=== PATIENT | female | born 1985 | race African-American/Black ===

== ENCOUNTER → 2022-06-11 15:41 | Outpatient (CLI) | payer OTHER, SELFPAY ==
[2022-06-11 16:46] LABS: Add Manual Diff / Slide Review NO; Basophils Absolute Auto 100 /uL (0-100); Eosinophils Absolute Auto 0 /uL (0-450); Eosinophils Percent Auto 0.6 % (2-4); Hematocrit 32.6 % (36-46); Hemoglobin 10.9 g/dL (12.0-16.0); Lymphocytes Absolute Auto 2400 /uL (1100-4500); Lymphocytes Percent Auto 34.1 % (25-40); Mean Corpuscular HGB Conc 33.5 % (30-36); Mean Corpuscular Hemoglobin 27.1 PG (26-34); Mean Corpuscular Volume 80.8 fL (80-100); Monocytes Absolute Auto 600 /uL (0-900); Monocytes Percent Auto 8.4 % (3-14); Neutrophils Absolute Auto 4000 /uL (1500-7000); Neutrophils Percent Auto 55.9 % (50-75); Platelet Count 284 X10^3/uL (150-400); Red Blood Cell Count 4.04 X10^6/uL (4.0-5.2); Red Cell Distribution Width 16.2 % (11.6-14.8); White Blood Cell Count 7.1 X10^3/uL (4.5-11.0)
[2022-06-11 17:26] LABS: BUN Creatinine Ratio 22.4 (6-22); Blood Urea Nitrogen 17 mg/dL (7-17); Calcium 9.7 mg/dL (8.4-10.2); Carbon Dioxide 24 mmol/L (22-32); Chloride 100 mmol/L (98-107); Cholesterol 184 mg/dL (140-199); Estimated Glomerular Filt Rate > 60 mL/min (>60); Glucose 88 mg/dL (70-100); HDL Cholesterol 52 mg/dL (40-60); HEMOLYSIS < 15 (0-50); LDL Cholesterol Calculated 111 mg/dL (<100); Potassium 2.9 mmol/L (3.4-5.1); Sodium 140 mmol/L (137-145); Triglycerides 103 mg/dL (35-150)
[2022-06-22 12:27] LABS: Renin Activity 0.332 ng/mL/hr (0.167-5.380)
== END ==
PROVIDERS: PCP Internal Medicine Cardiovascular Disease; Referring Provider Internal Medicine Cardiovascular Disease; Visit Provider Internal Medicine Cardiovascular Disease
DX: I10 Essential (primary) hypertension (principal)
CPT/HCPCS: 36415; 80048; 80061; 82088; 84244; 85025

== ENCOUNTER → 2022-08-20 14:28 | Outpatient (CLI) | payer OTHER, SELFPAY ==
--- NOTE | 2022-08-20 14:59 | DI.ECHO.S_ITS ---
Interpretation Summary 1) Normal left ventricular thickness, size, wall motion, and systolic function (EF 60-65%). 2) Normal right ventricular size and function. 3) No significant valvular abnormalities. 4) No prior Echo available for comparison. Procedure: A two-dimensional transthoracic echocardiogram with color flow and Doppler was performed. The study quality was technically good. There is no prior echocardiogram noted for this patient. The patient was in sinus rhythm with heart rates between 68-76 bpm during the exam. Left Ventricle: The left ventricle is normal in size and wall thickness. The ejection fraction is estimated to be 60-65%. Left ventricular systolic function appears normal without focal wall motion abnormalities. Diastolic parameters suggest probable normal left ventricular diastolic function and normal filling pressures. Right Ventricle: The right ventricle is normal in size and function. Atria: The left atrial size is normal. Right atrial size is normal. There is no Doppler evidence for an interatrial shunt. Mitral Valve: The mitral valve is normal in structure and function. There is trace mitral regurgitation. Aortic Valve: The aortic valve is normal in structure and function. There is no aortic valve stenosis. No aortic regurgitation is present. Tricuspid Valve: The tricuspid valve is normal in structure and function. There is a trace or physiologic amount of tricuspid regurgitation. The right ventricular systolic pressure is estimated to be at least 20.3 mmHg based on an estimated right atrial pressure of 3 mm Hg. Pulmonic Valve: The pulmonic valve leaflets are thin and pliable; valve motion is normal. There is mild pulmonic regurgitation. Great Vessels: The aortic root is normal size. The ascending aorta is normal in size. The pulmonary artery is normal size. The IVC is of normal diameter and collapses greater than 50% with a sniff. This suggests a low right atrial pressure of 3 mm Hg. Pericardium/ Pleura There is no pericardial effusion. There is no pleural effusion. MMode/2D Measurements & Calculations LVIDd: 4.2 cm LVOT diam: 1.9 cm LVIDs: 2.7 cm Ao root diam: 2.7 cm FS: 34.9 % asc Aorta Diam: 2.7 cm EPSS: 0.26 cm IVSd: 0.86 cm LVPWd: 0.87 cm LV garcia. diameter/BSA (cm/m^2): 2.3 LV sys. diameter/BSA (cm/m^2): 1.5 LA A2 area: 15.5 cm2 RA long axis: 4.5 cm LA A4 area: 15.6 cm2 RA area: 11.4 cm2 LA length (vol): 5.0 cm RA vol: 24.6 ml LA vol: 41.4 ml RA : 13.6 ml/m2 LA vol index: 23.0 ml/m2 IVC diam: 1.7 cm RVD1 (basal): 3.3 cm TAPSE: 3.1 cm Doppler Measurements & Calculations Ao V2 max: 147.8 cm/sec LVOT Max Gustabo: 135.3 cm/sec Ao V2 mean: 115.3 cm/sec LV V1 max P.3 mmHg Ao max P.7 mmHg LV V1 VTI: 23.7 cm Ao mean P.6 mmHg DANIEL(I,D): 2.3 cm2 Ao V2 VTI: 29.9 cm DANIEL(V,D): 2.6 cm2 sev ratio: 0.79 DANIEL indexed to BSA (cm^2/m^2): 1.3 MV E max gustabo: 78.3 cm/sec TR max gustabo: 207.8 cm/sec MV A max gustabo: 62.4 cm/sec TR max P.3 mmHg MV E/A: 1.3 PA V2 max: 116.7 cm/sec Med Peak E' Gustabo: 9.2 cm/sec PA V2 mean: 86.1 cm/sec E/E' med: 8.5 PA mean P.2 mmHg Lat Peak E' Gustabo: 13.3 cm/sec E/E' lat: 5.9 E/e' average: 7.2 MV dec time: 0.25 sec MVA(VTI): 2.4 cm2 MV V2 mean: 69.0 cm/sec SV(LVOT): 68.1 ml MV mean P.1 mmHg MV V2 VTI: 28.2 cm Reading Physician:04:48 PM
== END ==
PROVIDERS: PCP Student in an Organized Health Care Education/Training Program; Referring Provider Internal Medicine Cardiovascular Disease; Visit Provider Internal Medicine Cardiovascular Disease
DX: I10 Essential (primary) hypertension (principal); I37.1 Nonrheumatic pulmonary valve insufficiency
CPT/HCPCS: 93306

== ENCOUNTER 2024-05-04 10:30 | Emergency (ER) | payer OTHER, SELFPAY ==
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
[2024-05-04 10:41] VITALS: BP 149/89; PULSE 71; RESP 16; TEMP 36.9; O2SAT 97; BMI 26.6
[2024-05-04 11:19] LABS: Alanine Aminotransferase 22 IU/L (<35)
[2024-05-04 11:56] LABS: Hepatitis B Surface Antigen NEGATIVE s/c (NEGATIVE)
[2024-05-04 12:10] LABS: HIV 1 & 2 Ab/Ag 4th Gen Combo NEGATIVE (NEGATIVE); Hep C Virus Ab w/Reflex Quant NEGATIVE s/c (NEGATIVE)
[2024-05-05 06:36] LABS: Hepatitis B Surf Ab Qualitativ Reactive (.)
== END 2024-05-04 11:06 | disposition home or self-care (01) ==
PROVIDERS: Emergency Provider Emergency Medicine
DX: Z77.21 Contact with and (suspected) exposure to potentially hazardous body fluids (principal); W46.0XXA Contact with hypodermic needle, initial encounter
CPT/HCPCS: 36415; 99281; 99283